=== PATIENT | male | born 1960 ===

== ENCOUNTER 2017-09-11 08:35 | Outpatient (CLI) | payer OTHER ==
--- NOTE | 2017-09-11 11:01 | CARDIAC PROCEDURE NOTE ---
DATE OF SERVICE: 09/11/2017 Physician: ALLEN Michael DATE OF SERVICE: 09/11/2017 PRIMARY CARE PHYSICIAN: Dr. Harper HEEL STAINER: Mena Gonzales Card[facility] PROCEDURE: Cardiac treadmill stress test. PROCEDURE SYMPTOMS: Chest pain. CARDIAC RISK FACTORS: Include known CAD. PREVIOUS CARDIAC PROCEDURES: Echo stress test 8 years ago. CLINICAL HISTORY: A 57-year-old male with known coronary artery disease including CABG x2 in 2006. This is an active man. INITIAL RESTING VITAL SIGNS: Blood pressure 122/84, heart rate 89, height 70 inches, weight 158 pounds. PROCEDURE AND FINDINGS: Patient identity and date verified, consent signed. The patient performed treadmill exercise using a Tom protocol, completing 12 minutes 31 seconds, and completing an estimated workload of 12.9 metabolic equivalents. Maximal blood pressure was 166/72 with a heart rate of 152 beats per minute or 94% of maximum predicted heart rate for age. The blood pressure response to exercise was within normal limits. The patient stopped because his legs were tiring and he was getting breathless. At peak exercise, the patient rated the maximal Eugene scale for rating of perceived exertion as 18/20. The resting ECG demonstrated normal sinus rhythm with early transition. Maximum ST segment depression was less than 0.5 mm and upsloping. There was 1 PVC triplet and occasional single PVCs. His 1 minute recovery heart rate was within normal limits. He was lightheaded on standing at the start of recovery. His blood pressure was faint. He recovered quickly on lying down. FINAL IMPRESSION 1. Negative stress electrocardiogram for ischemia by electrocardiographic criteria. 2. Negative stress test clinically for angina. 3. One triplet of premature ventricular contractions in stage IV and occasional single monomorphic premature ventricular contractions. 4. Outperformed predicted time of 8 minutes 30 seconds to 8 minutes 55 seconds. [place] [employer] functional class 1. TD: 09/11/2017 11:00
[2017-09-11 16:33] VITALS: BP 122/84
--- NOTE | 2017-09-11 17:18 | XRAY Report ---
TWO VIEW CHEST: 09/11/2017 CLINICAL INDICATION: Coronary artery disease, chest pain. FINDINGS: Frontal and lateral views of the chest demonstrate a normal cardiac silhouette. Postoperative changes are present. Minimal left pleural thickening is noted, likely postoperative in etiology. The lungs are clear. No effusion or pneumothorax is present. IMPRESSION: POSTOPERATIVE CHANGES. NO EVIDENCE OF ACUTE CARDIOPULMONARY DISEASE. TD: 09/11/2017 17:17
--- NOTE | 2017-09-12 10:05 | XRAY Report ---
CARDIOVASCULAR TREADMILL TEST There was no imaging performed for this exam. Procedure notes and results available in the EMR. MARIA LUZ
== END 2017-09-11 08:36 | disposition home or self-care (01) ==
LOC: DI 08:35
PROVIDERS: ATTEND Family Medicine
DX: I25.118 Atherosclerotic heart disease of native coronary artery with other forms of angina pectoris (principal); Z95.1 Presence of aortocoronary bypass graft; J42 Unspecified chronic bronchitis; I49.3 Ventricular premature depolarization
CPT/HCPCS: 71046; 93017

== ENCOUNTER 2017-10-28 08:48 | Outpatient (CLI) | payer OTHER ==
--- NOTE | 2017-10-28 09:51 | XRAY Report ---
TWO VIEW CHEST: 10/28/2017 CLINICAL INDICATION: Respiratory infection, cough. COMPARISON: 09/11/2017 FINDINGS: Frontal and lateral views of the chest demonstrate a normal cardiac silhouette. Postoperative changes of cardiac surgery are stable. The lungs remain clear. No effusion or pneumothorax is present. IMPRESSION: STABLE POSTOPERATIVE CHANGES. NO EVIDENCE OF ACUTE CARDIOPULMONARY DISEASE. NO SIGNIFICANT INTERVAL CHANGE FROM 09/11/2017. TD: 10/28/2017 09:50
== END 2017-10-28 08:49 | disposition home or self-care (01) ==
LOC: DI 08:48
PROVIDERS: ATTEND Family Medicine
DX: J22 Unspecified acute lower respiratory infection (principal)
CPT/HCPCS: 71046

== ENCOUNTER 2018-09-20 17:43 | Emergency (ER) | payer OTHER ==
[2018-09-20 18:16] LABS: BILIRUBIN,URINE NEGATIVE (NEGATIVE); GLUCOSE, URINE (UA) NEGATIVE (NEGATIVE); KETONES,URINE (UA) NEGATIVE (NEGATIVE); LEUKOCYTE ESTERASE, URINE NEGATIVE (NEGATIVE); NITRITE,URINE NEGATIVE (NEGATIVE); OCCULT BLOOD,URINE NEGATIVE (NEGATIVE); PROTEIN,URINE NEGATIVE (NEGATIVE); UROBILINOGEN,URINE 0.2 (NORMAL) E.U./dL (NORMAL)
[2018-09-20 18:21] LABS: CLARITY,URINE CLEAR (CLEAR)
[2018-09-20 18:25] LABS: BACTERIA,URINE None Seen /HPF (None Seen); RBC,URINE None Seen /HPF (0-5); SQUAMOUS EPITHELIAL CELL,UR NONE SEEN (<= Few)
[2018-09-20] MEDS ORDERED: DEXAMETHASONE 10 MG/ML VIAL PO STA (20:32)
[2018-09-20] MEDS ORDERED: BENZONATATE 100 MG CAPSULE PO STA (20:32)
[2018-09-20] MEDS ORDERED: cephALEXin 250 MG CAPSULE PO STA (20:32)
[2018-09-20] MEDS ORDERED: CHERRY SYRUP 10 ML UDC PO ONE (20:41)
[2018-09-20 20:50] VITALS: BP 149/98
--- NOTE | 2018-09-20 21:01 | ED Physician Documentation ---
PD HPI URI - Stated complaint Stated Complaint: FEVER - Chief complaint Chief Complaint: Fever - History obtained from History obtained from: Patient - History of Present Illness Timing - onset: Today Timing duration: Days (today with malaise, feverish, increased cough and soreness right arm at vaccine site.) Timing details: Abrupt onset Associated symptoms: Fever, Nasal congestion, Dry cough. No: Sore throat, NVD Contributing factors: Immunocompromised (asplenic since childhood). No: Sick contact Improves by: Rest Similar symptoms before: Has not had sx before Recently seen: Clinic (had pneumovax vaccine yesterday. Has had some cough and congestion for a week as well. Having malaise, fevers, some right arm swelling, and worse cough today.) Review of Systems Constitutional: reports: Fever (101 at home), Myalgias Nose: reports: Congestion Throat: denies: Dental pain / toothache, Sore throat Respiratory: reports: Cough GI: denies: Vomiting, Diarrhea Skin: reports: Rash (some redness right lateral deltoid today) Neurologic: denies: Focal weakness, Numbness, Near syncope, Altered mental status, Headache PD PAST MEDICAL HISTORY - Past Medical History Past Medical History: Yes Cardiovascular: High cholesterol, Coronary artery disease, [place] Respiratory: COPD, Other - Past Surgical History General: Bowel surgery, Splenectomy Cardiovascular: CABG, Lobectomy - Present Medications Home Medications: Ambulatory Orders Medication Instructions Recorded Confirmed Cephalexin [Keflex] 500 mg PO TID #15 capsule 09/20/18 Dexamethasone [Decadron] 4 mg PO DAILY #5 tablet 09/20/18 - Allergies Allergies/Adverse Reactions: Allergies Allergy/AdvReac Type Severity Reaction Status Date / Time atorvastatin [From Lipitor] Allergy Unknown Verified 09/20/18 19:05 Penicillins Allergy Unknown Verified 09/20/18 19:05 - Social History Does the pt smoke?: No Smoking Status: Never smoker Does the pt drink ETOH?: No Does the pt have substance abuse?: No PD ED PE NORMAL - Vitals Vital signs reviewed: Yes - General General: Alert and oriented X 3, No acute distress, Well developed/nourished - HEENT HEENT: Ears normal, Moist mucous membranes, Pharynx benign - Neck Neck: Supple, no meningeal sign, No adenopathy - Cardiac Cardiac: RRR, No murmur - Respiratory Respiratory: Clear bilaterally - Abdomen Abdomen: Normal bowel sounds, Soft, Non tender, Non distended - Derm Derm: Normal color, Warm and dry - Extremities Extremities: Normal ROM s pain, No edema, No calf tenderness / cord, Other (right lateral deltoid with some redness and mild swelling at vaccine site. No purulence. ) - Neuro Neuro: Alert and oriented X 3, No motor deficit, Normal speech Results - Vitals Vitals: Oxygen O2 Source Room air - Labs Labs: Laboratory Tests 09/20/18 09/20/18 18:08 20:05 Urine Color YELLOW Urine Clarity CLEAR Urine pH 7.0 Ur Specific [place] 1.010 Urine Protein NEGATIVE Urine Glucose (UA) NEGATIVE Urine Ketones NEGATIVE Urine Occult Blood NEGATIVE Urine Nitrite NEGATIVE Urine Bilirubin NEGATIVE Urine Urobilinogen 0.2 (NORMAL) Ur Leukocyte Esterase NEGATIVE Urine RBC None Seen Urine WBC 0-3 Ur Squamous Epith Cells NONE SEEN Urine Bacteria None Seen Urine Culture Comments NOT INDICATED Influenza A (Rapid) Negative Influenza B (Rapid) Negative PD MEDICAL DECISION MAKING - ED course Complexity details: considered differential (seems like URI but with history of asplenia, will give abx in case of bacterial cause. Some of the fever and malaise can be vaccine response as there is some redness/warmth at the injection site. ), d/w patient Departure - Departure Disposition: 01 Home, Self Care Clinical Impression: Asplenia Fever Qualifiers: Fever type: post-vaccination Qualified Code(s): R50.83 - Postvaccination fever Upper respiratory infection Qualifiers: URI type: unspecified URI Qualified Code(s): J06.9 - Acute upper respiratory in fection, unspecified Condition: Stable Record reviewed to determine appropriate education?: Yes Prescriptions: Cephalexin [Keflex] 500 mg PO TID #15 capsule Dexamethasone [Decadron] 4 mg PO DAILY #5 tablet Comments: Drink lots of fluids. Tylenol or ibuprofen if needed for fevers. This almost sounds flulike but your flu test is negative (there is a false negative rate but it is just I cannot say for sure and its the flu). Therefore would be worried about bacterial infection with your cough and fever in lieu of your asplenia. We will treated with cephalexin 3 times a day for potential bacterial cause. We can add Decadron steroid to help with her ocular inflammation so less coughing. Tessalon if needed for cough suppression. You may be having some fever enhanced as an immune response to your vaccine yesterday as well but I would not expect that to give you cough and such so presume there is a least some upper respiratory infection 2. Recheck if worsening symptoms over the next few days otherwise likely to be ill for 3-5 days. Discharge Date/Time: 09/20/18 21:04
== END 2018-09-20 21:04 | disposition home or self-care (01) ==
LOC: ED 17:43
DX: J06.9 Acute upper respiratory infection, unspecified (principal); R50.83 Postvaccination fever; T50.Z95A Adverse effect of other vaccines and biological substances, initial encounter; Z90.81 Acquired absence of spleen
CPT/HCPCS: 81001; 87275; 87276; 99283; 99284; A9270; 87086

== ENCOUNTER 2019-12-20 09:05 | Outpatient (CLI) | payer OTHER ==
[~2019-12-20 09:05] MED LIST: ALBUTEROL 1 PUFF INH STA; ALBUTEROL NEB 2.5 MG/3 ML INH ONE
== END 2019-12-20 09:06 | disposition home or self-care (01) ==
LOC: RT 09:05
PROVIDERS: ATTEND Internal Medicine
DX: J42 Unspecified chronic bronchitis (principal)
CPT/HCPCS: 94010

== ENCOUNTER 2020-07-18 14:28 | Outpatient (CLI) | payer OTHER | END 2020-07-18 14:29 | disposition home or self-care (01) | LOC: COV 14:28 | PROVIDERS: ATTEND Family Medicine | DX: R06.02 Shortness of breath (principal); M79.10 Myalgia, unspecified site; R53.83 Other fatigue; R09.81 Nasal congestion; J34.89 Other specified disorders of nose and nasal sinuses; R11.0 Nausea; Z20.822 Contact with and (suspected) exposure to COVID-19 ==

== ENCOUNTER 2023-06-24 11:00 | Outpatient (CLI) | payer MEDICARE, OTHER ==
--- NOTE | 2023-06-24 13:56 | XRAY Report ---
PROCEDURE: Cervical Spine 2 View INDICATIONS: Cervicalgia TECHNIQUE: 3 view(s) of the cervical spine were acquired. COMPARISON: None. FINDINGS: Bones: No fractures or dislocations to the C7-T1 level. The lateral masses of C1 appear intact on t he odontoid view. No suspicious bony lesions. There is trace retrolisthesis of C4 on C5, C5 on C6. Multilevel mild to moderate disc space narrowing is present most severe at C3-4, C5-6. Small anterior osteophytes are present. Multilevel uncovertebral arthropathy. Soft tissues: No prevertebral soft tissue swelling. IMPRESSION: Multilevel degenerative changes most severe at C4-5, C5-6. Reviewed by: Reema Jones MD on 06/24/2023 1:55 PM PST Approved by: Reema Jones MD on 06/24/2023 1:55 PM [facility] Station ID: [id number]
== END 2023-06-24 11:01 | disposition home or self-care (01) ==
LOC: DI.N 11:00
PROVIDERS: ATTEND Internal Medicine
DX: M47.812 Spondylosis without myelopathy or radiculopathy, cervical region (principal)